=== PATIENT | male | born 1940 | race Caucasian/White ===

== ENCOUNTER → 2023-06-02 11:23 | Outpatient (REF) | payer MEDICARE, BC, SELFPAY ==
[2023-06-02 12:33] LABS: ALT (SGPT) 31 U/L (0-50); AST (SGOT) 31 U/L (17-59); Albumin 4.9 g/dl (3.5-5.0); Alkaline Phosphatase 71 U/L (38-126); Blood Urea Nitrogen 25 mg/dl (9-20); Carbon Dioxide 24 mmol/L (22-30); Chloride 105 mmol/L (98-107); Glucose 151 mg/dl (70-99); Potassium 4.7 mmol/L (3.5-5.1); Sodium 137 mmol/L (135-145); Total Bilirubin 0.5 mg/dl (0.2-1.3); Total Protein 7.5 g/dl (6.3-8.2); eGFR 55.19
[2023-06-02 12:48] LABS: Vitamin D, 25-OH*** 79.3 ng/mL (30-80)
[2023-06-02 13:09] LABS: Microalbumin, Random Urine 5.9 mg/dl (0.6-1.7); Microalbumin/creatinine Ratio 265.8 mg/g
[2023-06-02 14:25] LABS: Glycohemoglobin (HgbA1c) 7.5 % (4.0-5.6)
== END ==
LOC: REG 11:23
PROVIDERS: ATTENDING PHYSICIAN Internal Medicine Endocrinology, Diabetes & Metabolism; FAMILY PHYSICIAN Internal Medicine; OTHER PHYSICIAN Internal Medicine Nephrology
DX: E11.65 Type 2 diabetes mellitus with hyperglycemia (principal); Z79.4 Long term (current) use of insulin; E55.9 Vitamin D deficiency, unspecified
CPT/HCPCS: 36415; 80053; 82043; 82306; 82570; 83036

== ENCOUNTER → 2023-08-26 09:54 | Outpatient (REF) | payer MEDICARE, BC, SELFPAY ==
[2023-08-26 10:59] LABS: ALT (SGPT) 23 U/L (0-50); AST (SGOT) 25 U/L (17-59); Albumin 4.5 g/dl (3.5-5.0); Alkaline Phosphatase 63 U/L (38-126); Blood Urea Nitrogen 23 mg/dl (9-20); Calcium 10.1 mg/dl (8.4-10.2); Carbon Dioxide 24 mmol/L (22-30); Chloride 107 mmol/L (98-107); Glucose 126 mg/dl (70-99); HDL Cholesterol 41 mg/dl; LDL Cholesterol, Calculated 46 mg/dl; Sodium 141 mmol/L (135-145); Total Bilirubin 0.7 mg/dl (0.2-1.3); Total Cholesterol 101 mg/dl (50-199); Total Protein 7.2 g/dl (6.3-8.2); Triglyceride 72 mg/dl (10-149); Very Low Density Lipoprotein 14 mg/dl (0-30); eGFR 43.02
[2023-08-26 11:14] LABS: Vitamin D, 25-OH*** 57.8 ng/mL (30-80)
[2023-08-26 12:23] LABS: Glycohemoglobin (HgbA1c) 7.8 % (4.0-5.6)
== END ==
LOC: REG 09:54
PROVIDERS: ATTENDING PHYSICIAN Internal Medicine Endocrinology, Diabetes & Metabolism; FAMILY PHYSICIAN Internal Medicine
DX: E11.65 Type 2 diabetes mellitus with hyperglycemia (principal); Z79.4 Long term (current) use of insulin; E55.9 Vitamin D deficiency, unspecified
CPT/HCPCS: 36415; 80053; 80061; 82306; 83036

== ENCOUNTER 2025-01-24 13:26 | Outpatient (RCR) | payer MEDICARE, BC, SELFPAY ==
[2025-01-24 11:07] LABS: Glucose - Point of Care 182 mg/dl (70-99)
== END 2025-01-24 23:59 | disposition home or self-care (01) ==
LOC: CRHB 13:26
PROVIDERS: ATTENDING PHYSICIAN Internal Medicine
DX: I25.10 Atherosclerotic heart disease of native coronary artery without angina pectoris (principal); Z95.1 Presence of aortocoronary bypass graft
CPT/HCPCS: 82962; G0422

== ENCOUNTER 2025-02-28 10:01 | Outpatient (RCR) | payer MEDICARE, BC, SELFPAY ==
[2025-01-30 08:30] LABS: Glucose - Point of Care 233 mg/dl (70-99)
[2025-01-30 09:06] LABS: Glucose - Point of Care 200 mg/dl (70-99)
[2025-02-02 09:19] LABS: Glucose - Point of Care 194 mg/dl (70-99)
[2025-02-02 10:14] LABS: Glucose - Point of Care 207 mg/dl (70-99)
[2025-02-05 09:27] LABS: Glucose - Point of Care 226 mg/dl (70-99)
[2025-02-05 10:21] LABS: Glucose - Point of Care 165 mg/dl (70-99)
[2025-02-07 09:18] LABS: Glucose - Point of Care 220 mg/dl (70-99)
[2025-02-07 10:22] LABS: Glucose - Point of Care 191 mg/dl (70-99)
[2025-02-09 09:17] LABS: Glucose - Point of Care 259 mg/dl (70-99)
[2025-02-09 10:16] LABS: Glucose - Point of Care 151 mg/dl (70-99)
[2025-02-19 09:23] LABS: Glucose - Point of Care 214 mg/dl (70-99)
[2025-02-19 10:19] LABS: Glucose - Point of Care 209 mg/dl (70-99)
[2025-02-23 09:22] LABS: Glucose - Point of Care 197 mg/dl (70-99)
[2025-02-23 10:13] LABS: Glucose - Point of Care 162 mg/dl (70-99)
[2025-02-26 09:25] LABS: Glucose - Point of Care 211 mg/dl (70-99)
[2025-02-26 10:22] LABS: Glucose - Point of Care 100 mg/dl (70-99)
[2025-02-28 09:11] LABS: Glucose - Point of Care 204 mg/dl (70-99)
[2025-02-28 10:12] LABS: Glucose - Point of Care 180 mg/dl (70-99)
== END 2025-02-28 23:59 | disposition home or self-care (01) ==
LOC: CRHB 10:01
PROVIDERS: ATTENDING PHYSICIAN Internal Medicine
DX: I25.10 Atherosclerotic heart disease of native coronary artery without angina pectoris (principal); Z95.1 Presence of aortocoronary bypass graft; Z95.5 Presence of coronary angioplasty implant and graft
CPT/HCPCS: 82962; G0422; G0423